=== PATIENT | male | born 2000 | race Caucasian/White ===

== ENCOUNTER 2018-04-26 04:42 | Observation (INO) | payer OTHER ==
[~2018-04-26] VITALS: Ht 182.9 cm; Wt 124.7 kg
[~2018-04-26 04:42] MED LIST: ALBU90OI; MONT5TCH; MULTCH; Silvadene20 GM TOP; Ultram50 MG PO
[2018-04-26 04:57] LABS: BASOPHILS ABSOLUTE AUTO 0.05 K/mm3 (0.00-0.23); BASOPHILS PERCENT AUTO 0 % (0-2); EOSINOPHILS ABSOLUTE AUTO 0.47 K/mm3 (0.00-0.68); EOSINOPHILS PERCENT AUTO 3 % (0-6); Hematocrit 45.3 % (37.0-53.0); IMMATURE GRAN ABSOLUTE AUTO 0.25 K/mm3 (0.00-0.10); IMMATURE GRAN PERCENT AUTO 2 % (0-1); LYMPHOCYTES ABSOLUTE AUTO 5.07 K/mm3 (0.84-5.20); LYMPHOCYTES PERCENT AUTO 33 % (21-46); MONOCYTES ABSOLUTE AUTO 1.07 K/mm3 (0.16-1.47); MONOCYTES PERCENT AUTO 7 % (4-13); Mean Corpuscular HGB 29.9 pg (26.0-34.0); Mean Corpuscular HGB Conc 33.1 g/dL (31.5-36.5); Mean Corpuscular Volume 90 fL (80-100); Mean Platelet Volume 10.1 fL (9.1-12.4); NEUTROPHILS ABSOLUTE AUTO 8.61 K/mm3 (1.96-9.15); NEUTROPHILS PERCENT AUTO 56 % (41-73); Platelet Count 255 K/mm3 (150-400); RDW Coefficient Variation 13.4 % (11.7-14.2); RDW Standard Deviation 44.2 fL (35.1-46.3); Red Blood Cell Count 5.01 M/mm3 (4.30-5.90); White Blood Cell Count 15.52 K/mm3 (4.00-11.30)
[2018-04-26 05:15] LABS: Alanine Aminotransfer (ALT/SGP 30 U/L (12-78); Albumin, Blood 3.9 g/dL (3.4-5.0); Albumin/Globulin Ratio 1.1 (0.8-1.8); Alk Phos 92 U/L (50-136); Anion Gap 7 mmol/L (6-16); Aspartate Aminotrans (AST/SGOT 30 U/L (12-37); Bilirubin, Total 0.4 mg/dL (0.1-1.0); Blood Urea Nitrogen 14 mg/dL (8-24); Bun/Creatinine Ratio 15.3 (12.0-20.0); CO2, Blood 27 mmol/L (21-32); Calcium, Blood 8.7 mg/dL (8.5-10.1); Chloride, Blood 105 mmol/L (98-108); Creatinine, Blood 0.92 mg/dL (0.60-1.20); Ethanol (Alcohol), Blood, Med <3 mg/dL; Globulin, Blood 3.5 g/dL (2.2-4.0); Glomerular Filtration Rate >60 (60-); Glucose, Blood 121 mg/dL (70-99); Potassium, Blood 3.7 mmol/L (3.5-5.5); Sodium, Blood 139 mmol/L (136-145); Total Protein, Blood 7.4 g/dL (6.4-8.2)
[2018-04-26 06:12] LABS: International Normalized Ratio 0.98; Prothrombin Time Results 10.4 Sec (9.7-11.5)
[2018-04-26 11:26] LABS: U Amphetamine Screen Not Detected; U Barbituate Screen Not Detected; U Benzodiazapine Screen DETECTED; U Buprenorphine Screen Not Detected; U Cannabinoids Screen DETECTED; U Cocaine Screen Not Detected; U Methadone Screen Not Detected; U Methamphetamine Screen Not Detected; U Opiates Screen Not Detected; U Oxycodone Screen Not Detected; U Phencyclidine Screen Not Detected; U Propoxyphene Screen Not Detected
--- NOTE | 2018-04-26 20:11 | NUR ---
SUMMARY PT REMAINS A&O X4, PAIN MANAGED WITH 1 PO NORCO. PT HAS WORKED WITH PHYSICAL THERAPY. HE IS A 1 PERSON ASSIST USING GAIT BELT AND FWW. HIP ABDUCTOR PILLOW PLACED ON PT WHILE IN BED. PT EDUCATED ON BASIC HIP PRECAUTIONS. HE WAS ABLE TO SHOWER. PT IS TOLERATING PO INTAKE. FAMILY HAS BEEN AT THE BEDSIDE THROUGH OUT THE DAY. CALL LIGHT IN REACH. REPORT GIVEN TO ESTUARDO PRATHER
--- NOTE | 2018-04-27 04:18 | NUR ---
SHIFT SUMMARY: PT A&0 X4. VS WNL. GIVEN 2 NORCO Q4 PER EMAR. RATING PAIN 9/10. PT REPORS BEING VERY PAINFUL. APPEARS TO BE DOING BETTER AFTER REST. ABLE TO SLEEP MOST OF SHIFT. DENIES N/V. TOLERATING PO LIQ. PILLOW WEDGE PLACED WHILE PT IS IN BED. TELE ON WITH NSR NOTED PER TELE. PLAN IS FOR PT TO WORK WITH PHYSICAL THERAPY AND DISCHARGE TODAY.
--- NOTE | 2018-04-27 11:31 | NUR ---
PT. IS WEIGHT BEARING TOLERATED ON RIGHT LEG. PT.IS CURRENTLY TOE TOUCH WEIGHT BEARING ON RIGHT LEG AND STATES PAIN 8 OUT OF 10 ON THE PAIN SCALE. PT. HAS BEEN MEDICATED WITH NORCO AND NEPROXEN PER ORDER. EVALUATION OF PAIN MEDICINE IS NOW A 7 OUT OF 10. I HAVE GIVEN THE PT. ICE TO PLACE ON THE RIGHT HIP AND OFFERING TECHNIQUES SUCH DISTRACTION AND DEEP BREATHING TO HELP MANAGE PAIN. WILL CONTINUE TO MONITOR.
--- NOTE | 2018-04-27 11:31 | NUR ---
PT. HAS GIVEN PERMISSION FOR STUDENT NURSE TO CARE FOR HIM.
[2018-04-27] MEDS ORDERED: HYDR1TAB94 PO (14:35)
--- NOTE | 2018-04-27 15:43 | NUR ---
DISCHARGE PT DISCHARGED AT APPROXIMATELY 1330. PT WAS PROVIDED WITH WRITTEN AND VERBAL DISCHARGE INSTRUCTIONS. PT REPORTED UNDERSTADING DISCHARGE INSTRUCTIONS AFTER WRITTEN AND VERBAL DISCHARGE INSTRUCTIONS WERE GIVEN. PRESCRIPTION WAS SENT WITH PT'S MOTHER PER PT REQUEST.
== END 2018-04-27 15:48 | disposition home or self-care (01) ==
LOC: ER 04:42 → SURS 04:43
PROVIDERS: Emergency Medicine; ADMIT Surgery
PROC: 0SS9XZZ Reposition Right Hip Joint, External Approach (ICD-10-PCS; principal; 2018-04-26)
DX: S73.014A Posterior dislocation of right hip, initial encounter (principal); I10 Essential (primary) hypertension; V89.2XXA Person injured in unspecified motor-vehicle accident, traffic, initial encounter; W22.11XA Striking against or struck by driver side automobile airbag, initial encounter; Y92.411 Interstate highway as the place of occurrence of the external cause
CPT/HCPCS: 27250; 70450; 71045; 72125; 72170; 72192; 80053; 83690; 85025; 85610; 85730; 86850; 86900; 86901; 96361-59; 96374-59; 96375-59; 97110; 97116; 97161; 97530; 99285-25; G0378; G0480; J2405; J3010; J7030

== ENCOUNTER → 2024-05-14 | Outpatient (CLI) | payer OTHER ==
[~2024-05-14] MED LIST changes: +HYDR1TAB94 PO
== END ==
LOC: LAB 11:44 → LAB SHORT 11:44
DX: L91.8 Other hypertrophic disorders of the skin (principal)
CPT/HCPCS: 88304